=== PATIENT | male | born 1945 | race Caucasian/White ===

== ENCOUNTER 2018-11-22 17:03 | Inpatient (IN) ==
[2018-11-22] MEDS ORDERED: ZOFRAN IV ONE ×2 (17:30→18:25)
[2018-11-22 18:07] LABS: INR 0.89; PROTIME 12.5 Seconds (11.0-16.0); PTT 28.1 Seconds (22.3-41.8)
[2018-11-22 18:17] LABS: AGAP 12; ALBUMIN 4.6 g/dL (3.5-5.0); ALKALINE PHOSPHATASE 72 U/L (32-122); BUN 17 mg/dL (8-22); CALCIUM 9.4 mg/dL (8.8-10.2); CHLORIDE 96 mmol/L (98-107); CK PROFILE 98 U/L (24-204); COSMO 282; CREATININE 0.9 mg/dL (0.7-1.2); ESTIMATED GFR > 60; GLUCOSE 110 mg/dL (70-104); GOT 420 U/L (10-34); GPT 177 U/L (10-44); POTASSIUM 3.8 mmol/L (3.5-5.1); SODIUM 140 mmol/L (136-145); TCO2 32 mmol/L (25-35); TOTAL PROTEIN 7.1 g/dL (6.3-8.3)
[2018-11-22 18:18] LABS: BASO# 0.04 X1000 (0.0-0.2); BASO% 0.5 % (0.0-0.8); EOS# 0.08 X1000 (0.0-0.7); EOS% 0.9 % (0.0-10.0); HEMOGLOBIN 14.8 g/dL (14.0-18.0); IMM GRAN# 0.01 X1000 (0.0-0.04); IMM GRAN% 0.1 % (0.0-0.5); LYMPH# 0.91 X1000 (1.2-3.4); LYMPH% 10.5 % (20.5-51.1); MCHC 35.2 g/dL (33-37); MCV 93.8 FL (81-99); MONO# 0.12 X1000 (0.11-0.59); MONO% 1.4 % (1.7-9.3); MPV 9.2 FL (7.4-10.4); NEUT# 7.49 X1000 (1.4-6.5); NEUT% 86.6 % (42.2-75.2); PLT 195 X1000 (130-400); RBC 4.48 XMIL (4.7-6.1); RDW 13.1 % (11.5-14.5); WBC 8.65 X1000 (4.8-10.8)
[2018-11-22 18:19] LABS: LIPASE > 3000 U/L (13-60)
--- NOTE | 2018-11-22 18:19 | Diag Imaging Result Doc PS360 ---
EXAM: CHEST-2 VIEWS HISTORY: SOB TECHNIQUE: Chest two views COMPARISON: None. FINDINGS: The lungs are well expanded. The heart is not enlarged. The vessels are not distended. There are no infiltrates. No pleural effusions. IMPRESSION: No acute abnormality. Electronically signed by Mario Gilbert 11/22/2018 6:16 PM
[2018-11-22] MEDS ORDERED: ZOSYN 3.375 GM in NS 50 ML IV ONE (18:21)
--- NOTE | 2018-11-22 18:23 | PROVIDER DOCUMENTATION ---
This chart was entered by Dev Yo Scribe, acting as scribe for Maribell Longoria CRNP. HPI-Abdominal Pain/GI Problem - General Chief Complaint: Abdominal Pain Stated Complaint: SOB/SHAKING Time Seen by Provider: 11/22/18 17:16 Source: patient Allergies/Adverse Reactions: Patient Allergies Allergy/AdvReac Type Severity Reaction Status Date / Time No Known Allergies Allergy Verified 08/06/18 21:39 - History of Present Illness-ABD Nature of Presenting Problems: Pt is a 73 y/o M presents to the ED with abdominal pain with vomiting that began today. He report not feeling well for a couple of days. Pt point across his upper abdomen when stating where he hurts. He says he has been keeping some fluid down. Abdominal Pain Onset Location: reports: RUQ, LUQ, epigastric Pain Radiation: reports: no radiation Quality of Pain: reports: aching Severity in ED: reports: moderate Onset/Duration: reports: this afternoon Timing: reports: still present Activities at Onset: reports: none Exposure to sick contacts?: No Associated Symptoms: reports: nausea, vomiting. denies: back/neck pain, fever/chills Review of Systems - Adult - REVIEW OF SYSTEMS - ADULT Constitutional: denies: chills, fever Eyes: reports: no symptoms reported Ears, Nose, Mouth & Throat: reports: no symptoms reported Cardiovascular: denies: chest pain, edema Respiratory: denies: cough, shortness of breath, wheezing Gastrointestinal: reports: see HPI, abdominal pain, nausea, vomiting. denies: diarrhea Genitourinary: denies: dysuria, discharge Musculoskeletal: reports: no symptoms reported Integumentary: reports: no symptoms reported Neurological: reports: ataxia. denies: dizziness/vertigo, headache/migraines Psychiatric: reports: no symptoms reported Endocrine: reports: no symptoms reported All Other Systems: Reviewed and Negative Past History - Adult - PAST MEDICAL HISTORY-ADULT Review of Records: reports: Old Records Reviewed, Nursing Assessment Review, Medications Reviewed Cardiovascular: reports: HTN, hyperlipidemia. denies: murmur Respiratory: denies: asthma, COPD Gastrointestinal: reports: GERD Musculoskeletal: reports: intervertebral disc disease Neurological: denies: CVA, headaches/migraines, Seizures/Epilepsy Psychiatric: reports: depression. denies: suicide attempt - PRIOR SURGERIES/PROCEDURES Surgical/Procedure History: reports: tonsillectomy, other (prostatectomy) - SOCIAL HISTORY Smoking: non-smoker Substance Use: none/never Living Situation: family Physical Exam-General - PHYSICAL EXAM-ADULT Initial Vital Signs Reviewed: Yes - CONSTITUTIONAL General Appearance: appears well, alert, no apparent distress - EYES Eyes: PERRL/EOMI, pink conjunctivae - HEAD, EARS, NOSE, MOUTH & THROAT HENMT: moist mucous membranes, normal ENT inspection - NECK Neck: non-tender, full range of motion, supple, normal inspection - RESPIRATORY Respiratory: lungs clear, normal breath sounds, no pleuratic chest pain, no respiratory distress, no accessory muscle use - CARDIOVASCULAR Cardiovascular: regular rate, rhythm, no gallop, no murmur - GASTROINTESTINAL (ABDOMEN) Abdominal Exam: normal bowel sounds, soft, tenderness (TTP bilateral upper quadrants). negative: distended, guarding, rigid, rebound - MUSCULOSKELETAL Back Exam: normal inspection, no CVA tenderness, no vertebral tenderness Extremity: normal range of motion, non-tender, normal gait, normal inspection, no pedal edema - SKIN Integumentary: normal color, warm/dry - NEUROLOGIC Neurologic: grossly normal, no motor/sensory deficits - PSYCHIATRIC Psych/Mental Status: normal mood/affect, normal thought content, normal thought process, oriented x 3 Progress - PLAN OF CARE/RESULTS Progress/Plan/Lab Results: Vital Signs - 8 hr 11/22/18 17:05 Temperature 97.6 F Pulse Rate 60 Respiratory Rate 20 Blood Pressure 117/060 O2 Sat by Pulse Oximetry 96 Orders Category Date Time Status Saline Loc NOW Care 11/22/18 17:16 Active CHEST-2 VIEWS [RAD] Stat Exams 11/22/18 17:17 Ordered CBC WITH ELECTRONIC DIFF [HEME] Stat Lab 11/22/18 17:16 Uncollected CK PROFILE [SP CHEM] Stat Lab 11/22/18 17:17 Uncollected COMPREHENSIVE METABOLIC PANEL [CHEM] Stat Lab 11/22/18 17:16 Uncollected LIPASE [CHEM] Stat Lab 11/22/18 17:16 Uncollected PROTIME WITH INR [COAG] Stat Lab 11/22/18 17:16 Uncollected PTT [COAG] Stat Lab 11/22/18 17:16 Uncollected TROPONIN T Stat Lab 11/22/18 17:16 Uncollected EKG [EKG] Stat Ther 11/22/18 17:16 Ordered Result Diagrams: 11/22/18 17:24 11/22/18 17:24 - EKG 1 Time of EKG reading by physician:: 19:23 EKG Read and Signed by:: Vandana Gillis EKG Interpretation (*Must complete 3 of following elements*): Abnormal Rate: 97 Rhythm: NSR Runge: normal QRS: RBB TX Interval: normal ST Wave: non-specific ST changes - XRAY 1 XRAY: Bilateral XRAY Study: Chest Impression: See EMR Report ([facility] [address], [address], [place] [address] Department of Imaging Patient: ESPINOZA DELEON Date: 11/22/18#: [id number] : 1945DM Status: [facility] ERAcct#: [id number] Age/Sex: 73/MRoom/Bed: Loc: P.ED Ordering Physician: Maribell Longoria Family Physician: Dominick Vanegas MD Reason for Procedure: SOB Signed EXAM: CHEST-2 VIEWS HISTORY: SOB TECHNIQUE: Chest two views COMPARISON: None. FINDINGS: The lungs are well expanded. The heart is not enlarged. The vessels are not distended. There are no infiltrates. No pleural effusions. IMPRESSION: No acute abnormality. Electronically signed by Mario Gilbert 11/22/2018 6:16 PM 11/22/181815 Inte rpreting Physician: Mario Gilbert MD Dictated Date/Time: 11/22/181815 cc: Maribell Longoria; Dominick Vanegas MD) - CT/MRI 1 CT Study: Abdomen, Pelvis Impression: See EMR Report ([facility] [address], [address], [place] [address] Department of Imaging Patient: ESPINOZA DELEON Date: 11/22/18#: [id number] : 1945DM Status: [facility] [id number] Age/Sex: 73/MRoom/Bed: Loc: P.ED Ordering Physician: Maribell Longoria Family Physician: Dominick Vanegas MD Reason for Procedure: abd pain Signed EXAM: CT ABD/PELVIS W/IV CONT ONLY HISTORY: abd pain TECHNIQUE: Emergency CT of the abdomen and pelvis with intravenous contrast COMPARISON: None. FINDINGS: No calcified gallstones. There is fatty infiltration of the liver. There is inflammation about the pancreas. No pancreatic calcifications. No pseudocyst. Normal spleen, adrenal glands, and kidneys. No hydronephrosis. No aortic aneurysm. Moderate atherosclerosis. There are many scattered colonic diverticula. No bowel obstruction. Normal appendix. The urinary bladder is moderately distended and is normal. The prostate has been removed. IMPRESSION: 1.Acute pancreatitis 2.Fatty infiltration of the liver 3.Colonic diverticulosis 4.Prostatectomy This exam was performed using automated exposure control, adjustment of mA or kV according to patient size, and/or use of iterative reconstruction technique. Electronically signed by Mario Gilbert 11/22/2018 7:28 PM 11/22/181927 Interpreting Physician: Mario Gilbert MD Dictated Date/Time: 11/22/181923 cc: Maribell Longoria; Dominick Vanegas MD) - CONSULTS/PCP/HOSPITALIST Notification #1 *Consult/PCP/Hospitalist*: MD Coty Time Discussed: 20:05 Reason/Comments: Acute pancreatitis with elevated LFTs Consult Disposition: Admit Departure - Departure Date of Disposition Decision: 11/22/18 Time of Disposition Decision: 20:05 DIAGNOSIS: Elevated LFTs Acute pancreatitis Qualifiers: Pancreatitis type: unspecified pancreatitis type Acute pancreatitis complication: unspecified Qualified Code(s): K85.90 - Acute pancreatitis without necrosis or infection, unspecified Nausea & vomiting Qualifiers: Vomiting type: unspecified Vomiting Intractability: intractable Qualified Code(s): R11.2 - Nausea with vomiting, unspecified Disposition: ADMITTED INPATIENT 09 Certified Medical Emergency: Emergent Condition: Stable Referrals and Follow-Ups: Dominick Vanegas MD [Primary Care Provider] - - Critical Care Note This patient required my direct & personal management of CC.: No Attestation - Physician/ DARCY Attestation Patient care was provided by Advanced Practice Provider:: Yes Advanced Practice Provider:: Maribell Longoria Advanced Practice Provider documentation review:: The Mid-level provider documentation, treatment plan and medical decision making was reviewed by the physician who agrees with all treatment and medical decision making by the MLP. The physician spent face to face time with patient:: Yes Advanced Practice Provider documentation review:: Supervising physician onsite and consulted in the evaluation and care of this patient. The physician did have a face to face encounter with the patient. This chart was documented by the indicated scribe, (Dev Yo Scribe) and accurately reflects the services I performed and decisions made by me, Maribell Longoria CRNP, as attested by the provider's signature.
[2018-11-22] MEDS ORDERED: DILAUDID IV ONE (18:25)
[2018-11-22] MEDS ORDERED: NS 1,000 ML IV ONE (18:26)
--- NOTE | 2018-11-22 19:30 | Diag Imaging Result Doc PS360 ---
EXAM: CT ABD/PELVIS W/IV CONT ONLY HISTORY: abd pain TECHNIQUE: Emergency CT of the abdomen and pelvis with intravenous contrast COMPARISON: None. FINDINGS: No calcified gallstones. There is fatty infiltration of the liver. There is inflammation about the pancreas. No pancreatic calcifications. No pseudocyst. Normal spleen, adrenal glands, and kidneys. No hydronephrosis. No aortic aneurysm. Moderate atherosclerosis. There are many scattered colonic diverticula. No bowel obstruction. Normal appendix. The urinary bladder is moderately distended and is normal. The prostate has been removed. IMPRESSION: 1.Acute pancreatitis 2.Fatty infiltration of the liver 3.Colonic diverticulosis 4.Prostatectomy This exam was performed using automated exposure control, adjustment of mA or kV according to patient size, and/or use of iterative reconstruction technique. Electronically signed by Mario Gilbert 11/22/2018 7:28 PM
--- NOTE | 2018-11-22 19:36 | EKG Report ---
Test Performed on : 11/22/2018 7:20:14 PM Test Reason : SOB Blood Pressure : / mmHG Vent. Rate : 097 BPM Atrial Rate : 097 BPM P-R Int : 148 ms QRS Dur : 140 ms QT Int : 386 ms P-R-T Axes : 030 010 000 degrees QTc Int : 490 ms Normal sinus rhythm. Right bundle branch block T wave abnormality, consider inferior ischemia Abnormal ECG No previous ECGs available Unconfirmed Result
[2018-11-22] MEDS ORDERED: LR 1,000 ML IV ONE (20:08)
[2018-11-22] MEDS ORDERED: DILAUDID IV PRN (21:20)
[2018-11-22] MEDS ORDERED: ZOFRAN IV PRN (21:20)
[2018-11-22] MEDS ORDERED: LR 1,000 ML ONE (21:31)
[2018-11-22] MEDS: LR 1,000 ML IV SCH (21:32)
[2018-11-23] MEDS: LR 1,000 ML IV SCH ×3 (05:23→21:08)
[2018-11-23 07:26] LABS: BASO# 0.02 X1000 (0.0-0.2); BASO% 0.1 % (0.0-0.8); EOS# 0.02 X1000 (0.0-0.7); EOS% 0.1 % (0.0-10.0); HEMATOCRIT 37.3 % (42.0-52.0); HEMOGLOBIN 12.7 g/dL (14.0-18.0); IMM GRAN# 0.05 X1000 (0.0-0.04); IMM GRAN% 0.3 % (0.0-0.5); LYMPH# 0.38 X1000 (1.2-3.4); MCH 32.3 PG (27-31); MCV 94.9 FL (81-99); MONO# 1.02 X1000 (0.11-0.59); MONO% 5.5 % (1.7-9.3); MPV 9.3 FL (7.4-10.4); PLT 164 X1000 (130-400); RBC 3.93 XMIL (4.7-6.1); RDW 13.3 % (11.5-14.5); WBC 18.69 X1000 (4.8-10.8)
[2018-11-23 07:43] LABS: AGAP 10; ALBUMIN 3.7 g/dL (3.5-5.0); ALKALINE PHOSPHATASE 56 U/L (32-122); AMYLASE 1135 U/L (20-200); BUN 14 mg/dL (8-22); CALCIUM 8.9 mg/dL (8.8-10.2); CHLORIDE 99 mmol/L (98-107); COSMO 279; CREATININE 0.9 mg/dL (0.7-1.2); ESTIMATED GFR > 60; GLUCOSE 89 mg/dL (70-104); GOT 234 U/L (10-34); GPT 205 U/L (10-44); POTASSIUM 4.2 mmol/L (3.5-5.1); SODIUM 140 mmol/L (136-145); TCO2 31 mmol/L (25-35)
[2018-11-23 07:47] LABS: LIPASE 1479 U/L (13-60)
[2018-11-23] MEDS ORDERED: ZOFRAN IV PRN (08:33)
[2018-11-23] MEDS: ZOSYN 3.375 GM in NS 50 ML IV SCH ×3 (10:15→21:08)
--- NOTE | 2018-11-23 12:41 | HISTORY AND PHYSICAL ---
CHIEF COMPLAINT: Abdominal pain. HISTORY OF PRESENT ILLNESS: This is a 73-year-old gentleman who presented to the emergency room complaining of a sudden onset of bilateral upper quadrant and epigastric pain. He described this as an aching stabbing type pain that had been present off and on for the past few weeks. He stated he noticed he would be sitting up in a chair in all the sudden get a grabbing type pain. He would have to get up and walk and it would soon subside. He does on retrospect thing that this followed food intake. He states for the last few days, he has just been feeling bad. He could not put his finger on quite what was going on. He denied any fevers or chills. Prior to coming to the emergency room, he had a sudden onset of abdominal pain, with vomiting. When it did not subside, he presented to the emergency room. He did rate his pain a 10/10 him on arrival to the emergency room with anything that he did exacerbated and nothing relieved. He was diagnosed with sun poisoning and given a steroid shot as well as steroid cream to rub on bilateral arms and his head. This was approximately 11/18/2018. PAST MEDICAL HISTORY: 1. Prostate cancer status post prostatectomy. 2. Hyperlipidemia. PAST SURGICAL HISTORY: Prostate removal. SOCIAL HISTORY: He denies alcohol, tobacco, or illicit drug use. He did drink in the past, but that has been many years. ALLERGIES: No known drug allergies. HOME MEDICATIONS: A list will be obtained by the nursing staff. Once verified, will review and restart as appropriate. REVIEW OF SYSTEMS: Discussed with the patient with pertinent positives stated in the HPI. He denied any syncope, dizziness, chest pain, palpitations, any diarrhea, constipation, black or bloody vomitus or stools, any hematuria, dysuria, frequency, urgency, any shortness of breath, cough, fever, chills, any PND, orthopnea. PHYSICAL EXAMINATION: VITAL SIGNS: Blood pressure is 101/56 with a heart rate of 71, respirations are 18, temperature 99.2 degrees oral with O2 saturations being 99 to 100 percent on room air. GENERAL: This is a 73-year-old gentleman who is lying flat in the bed in no distress. EYES: Pupils are equal, round, react to light. EOMs are intact. Sclerae are anicteric. HEENT: Head is normocephalic, atraumatic. Mucous membranes are dry. NECK: Supple with trachea midline. CARDIOVASCULAR: Regular rate and rhythm. S1 and S2 appreciated. No murmur. Calves are nontender to palpation bilateral with peripheral pulses palpable x4 extremities. PULMONARY: Breath sounds are clear with no increased work of breathing noted. Chest rises and falls symmetric with respiration. Chest wall is nontender to palpation. GASTROINTESTINAL: Abdomen is soft. He has diffuse tenderness, particularly in the upper quadrants. He is nondistended with bowel sounds in all 4 quadrants. GENITOURINARY: He has no CVA or suprapubic tenderness. SKIN: Warm and dry with no rashes or lesions noted. NEUROLOGIC: He is alert oriented x3. LABORATORY DATA: On arrival to the ER, WBC was 8.65 with hemoglobin 14.8, hematocrit 42, and platelets of 195,000. Sodium 140, potassium 3.8, BUN 17, creatinine 9 with a glucose of 110, total bilirubin is 1.20 with AST of 420, ALT of 177, alkaline phosphatase of 72. Amylase is 2659 with lipase greater than 3000 and a lactate of 2.3. Repeat labs on the , WBC is 18.69 with hemoglobin 12.7, hematocrit 37.3, and platelets of 164,000. Sodium 140, potassium 4.2, BUN 14, creatinine 0.9 with a glucose of 89, total bilirubin is 2.7 with AST of 234, ALT 205, alkaline phosphatase of 56. Amylase is 1135 with lipase 1479. Blood cultures preliminary revealed gram- negative rods to both right antecubital and left hand sites. Chest x-ray revealed no acute abnormality. CT of the abdomen and pelvis with IV contrast revealed acute pancreatitis, fatty infiltration of the liver, colonic diverticulosis and prostatectomy. ASSESSMENT AND PLAN: 1. Acute pancreatitis. IV hydration, pain and nausea medication. remain NPO. trend his amylase, lipase and liver function tests. 2. Nausea and vomiting secondary to #1, IV hydration and Zofran for antiemetics. 3. Leukocytosis. White count did increase to 18, blood cultures revealed gram- negative rods. 4. Gram-negative kerry bacteremia. Zosyn and await sensitivities. 5. Elevated liver function tests. Treatment as above. Will obtain an ultrasound of the abdomen. 6. For deep venous thrombosis prophylaxis, sequential compression devices. 7. For gastrointestinal prophylaxis, Protonix. The patient will remain NPO except for medication. Further treatments pending hospital course and discussion with Dr. Vanegas. Dictated by DIAN Daily for Dominick Vanegas MD cc: DIAN Daily MD [facility]
--- NOTE | 2018-11-23 14:51 | HISTORY AND PHYSICAL ---
ADDENDUM: Patient seen and examined by myself. Full note dictated and discussed with nurse practitioner. Patient presented to the hospital with a 1- to 2-day history of epigastric abdominal pain, nausea, and vomiting. Denies any fevers or chills. Denies any GI or issues otherwise. States he is having intense epigastric pain. He was given Dilaudid in the ER as well IV fluids and kept n.p.o. Notes that his symptoms are improving this morning, but he is still having pain. White count is actually elevated to 18.6. It was initially 8. AST, ALT, amylase, and lipase all are trending downward. Bilirubin is actually elevated from admission. This may be more mobilization than actually worsening since his LFTs are improving. We will admit him to the hospital. IV fluids. Keep him n.p.o. and treat him for pancreatitis. Does have gram-negative rods growing in the blood. We will place him on Zosyn and will follow. Please see full note. cc: Dominick Vanegas MD
--- NOTE | 2018-11-23 15:09 | Diag Imaging Result Doc PS360 ---
EXAM: US ABDOMEN-COMPLETE HISTORY: Acute pancreatitis TECHNIQUE: Abdominal ultrasound COMPARISON: CT from 11/22/2018 FINDINGS: The pancreas is obscured. There is fatty infiltration of the liver. Normal right kidney. No hydronephrosis. The gallbladder is contracted. There is a 5 mm stone near the neck of the gallbladder. The common bile duct measures 5 mm. Spleen is not enlarged. Normal left kidney. No hydronephrosis. No ascites. The aorta and inferior vena cava are poorly seen. IMPRESSION: 1.Cholelithiasis 2.Fatty infiltration of the liver Electronically signed by Mario Gilbert 11/23/2018 3:07 PM
[2018-11-23] MEDS ORDERED: NS 0 ML ONE (16:18)
[2018-11-23] MEDS: TYLENOL PO PRN (21:08)
[2018-11-24] MEDS: LR 1,000 ML IV SCH ×5 (02:00→18:02)
[2018-11-24] MEDS: ZOSYN 3.375 GM in NS 50 ML IV SCH ×4 (02:00→20:17)
[2018-11-24] MEDS: PROTONIX PO SCH (06:09)
[2018-11-24 06:56] LABS: BASO# 0.02 X1000 (0.0-0.2); BASO% 0.2 % (0.0-0.8); EOS# 0.12 X1000 (0.0-0.7); EOS% 1.1 % (0.0-10.0); HEMATOCRIT 38.5 % (42.0-52.0); HEMOGLOBIN 12.8 g/dL (14.0-18.0); IMM GRAN# 0.02 X1000 (0.0-0.04); IMM GRAN% 0.2 % (0.0-0.5); LYMPH# 0.81 X1000 (1.2-3.4); LYMPH% 7.2 % (20.5-51.1); MCH 31.9 PG (27-31); MCHC 33.2 g/dL (33-37); MONO% 5.3 % (1.7-9.3); MPV 9.2 FL (7.4-10.4); NEUT# 9.69 X1000 (1.4-6.5); PLT 129 X1000 (130-400); RBC 4.01 XMIL (4.7-6.1); RDW 13.4 % (11.5-14.5); WBC 11.26 X1000 (4.8-10.8)
[2018-11-24 07:19] LABS: AGAP 10; ALBUMIN 3.6 g/dL (3.5-5.0); ALKALINE PHOSPHATASE 62 U/L (32-122); AMYLASE 384 U/L (20-200); BUN 13 mg/dL (8-22); CALCIUM 8.7 mg/dL (8.8-10.2); CHLORIDE 100 mmol/L (98-107); COSMO 277; CREATININE 0.8 mg/dL (0.7-1.2); ESTIMATED GFR > 60; GLUCOSE 87 mg/dL (70-104); GOT 108 U/L (10-34); GPT 141 U/L (10-44); LIPASE 522 U/L (13-60); POTASSIUM 3.6 mmol/L (3.5-5.1); SODIUM 139 mmol/L (136-145); TCO2 29 mmol/L (25-35); TOTAL PROTEIN 6.1 g/dL (6.3-8.3)
[2018-11-24 07:59] LABS: BANDS 1 % (0-1); LYMPHS 8 % (21-51); MONO 1 % (1-9); SEGS 90 % (42-75)
--- NOTE | 2018-11-24 09:44 | GENERAL SURGERY CONSULTATION ---
DATE: 11/24/2018 REQUESTING PHYSICIAN: Dr. Vanegas. REASON FOR CONSULTATION: Consult is concerning likely biliary pancreatitis. HISTORY OF PRESENT ILLNESS: A 73-year-old gentleman who presented to the emergency department with sudden onset bilateral upper quadrant pain and epigastric pain. He described it as stabbing in nature. It had been going on for several days but it worsened. He was seen in emergency department. Had a CT scan and laboratory that seemed to suggest pancreatitis. Likely, the etiology at this point, given an ultrasound showing cholelithiasis, it is biliary pancreatitis. He is currently feeling better. He has been admitted and started on appropriate therapy. I was asked to weigh an opinion. PAST MEDICAL HISTORY: 1. Prostate cancer, status post prostatectomy. 2. Hyperlipidemia. PAST SURGICAL HISTORY: Includes prostatectomy. SOCIAL HISTORY: Denies alcohol, tobacco, or illicit drugs. ALLERGIES: None. HOME MEDICATIONS: Reviewed. FAMILY HISTORY: Reviewed with patient and noncontributory. REVIEW OF SYSTEMS: A full 10 point review of systems was obtained and negative except as specified in the HPI. PHYSICAL EXAMINATION: Vital Signs: The patient is currently afebrile. His vital signs are stable. General Examination: No acute distress. Alert, interactive, male. Looks stated age. HEENT: Normocephalic, atraumatic. Pupils equal, round, reactive to light. Mucous membranes moist. Oropharynx benign. Neck: Supple. Trachea midline. Cardiovascular: Regular rate and rhythm. Lungs: Grossly clear. Abdomen: Soft. Some minimal epigastric tenderness but no peritoneal signs. Extremities: Moves all extremities. Neurologic: Grossly intact. Skin: No signs of jaundice. Vascular: All extremities perfused. LABORATORY: White blood cell count is 11, hematocrit 38.5, platelet count 129,000. Bilirubin 1.7, AST 108, ALT 141, alkaline phosphatase 62, amylase 348, lipase 522. Imaging reviewed and noted above. ASSESSMENT AND PLAN: A 73-year-old with likely biliary pancreatitis. Biliary pancreatitis. At this time, we will plan on letting the pancreatitis improve. We will plan on surgical intervention likely once the pancreatitis resolves. Otherwise, continue current treatment. cc: Carlos Mcdonald MD
--- NOTE | 2018-11-24 19:25 | PROGRESS NOTE ---
DATE: 11/24/2018 SUBJECTIVE: Patient states he is feeling much better. His nausea is improved. His abdominal pain is improved. Denies any fevers or chills. PHYSICAL: Vital Signs: Temperature 98.5, pulse 64, respiratory 18, BP 115/58. General: Patient is in no current respiratory distress. Very pleasant to talk with. HEENT: Normocephalic. Neck: Supple. Cardiovascular: Regular rate. Chest: Clear. Abdomen: Soft. Extremities: Moves all extremities. Neurologic: No changes. ASSESSMENT: 1. Nausea and vomiting. 2. Pancreatitis, improving. 3. AST, ALT both have improved. 4. Gallstones. 5. Gram-negative kerry bacteremia. PLAN: We will continue patient in the hospital. Continue antibiotics until we get full culture and sensitivities. We have consulted surgery, although patient cannot go to surgery currently. For one, his pancreatitis needs to improve and his blood cultures also needs to improve. cc: Dominick Vanegas MD
[2018-11-25] MEDS: ZOSYN 3.375 GM in NS 50 ML IV SCH ×4 (02:13→21:00)
[2018-11-25] MEDS: LR 1,000 ML IV SCH ×4 (02:13→21:02)
--- NOTE | 2018-11-25 05:42 | GENERAL SURGERY PROGRESS NOTE ---
DATE: 11/25/2018 SUBJECTIVE: The patient seems to be doing okay. No major issues. He is hurting less. OBJECTIVE: Vital Signs: The patient is currently afebrile. His vital signs are stable. General: No acute distress. HEENT: Normocephalic, atraumatic. Pupils equal, round, and reactive to light. Mucous membranes moist. Oropharynx benign. Neck: Supple. Trachea midline. Cardiovascular: Regular rate and rhythm. Lungs: Grossly clear. Abdomen: Soft, essentially nontender, nondistended. Extremities: Moves all extremities. Neurologic: Grossly intact. Skin: No signs of jaundice. Vascular: All extremities perfused. DIAGNOSTIC DATA: Laboratory reviewed from yesterday. Microbiology shows gram-negative rods in blood cultures. ASSESSMENT AND PLAN: A 73-year-old with pancreatitis, presumed biliary, and bacteremia. 1. Bacteremia. At this time this could be related to his pancreatitis. He is on Zosyn. He is clinically doing okay but may need to hold off on surgery given his bacteremia. He does not have any obvious signs of cholecystitis at this time so it would be hard to suggest that the gallbladder was the source of his bacteremia, he could have gotten bacteremic from the pancreatitis, which would just suggest that he has a pretty significant pancreatitis, which may mean we want to hold off on doing any kind of cholecystectomy. 2. Possible biliary pancreatitis. At this time, please see above, but given his bacteremia and the lack of signs of cholecystitis, we will hold off right now on cholecystectomy. We will keep him on his IV antibiotics. I will actually advance him to a low-fat diet and we will see how he does. I will discuss with Dr. Vanegas. cc: Carlos Mcdonald MD
[2018-11-25 06:03] LABS: HEMATOCRIT 37.9 % (42.0-52.0); HEMOGLOBIN 12.9 g/dL (14.0-18.0); MCH 31.6 PG (27-31); MCV 92.9 FL (81-99); MPV 9.3 FL (7.4-10.4); RBC 4.08 XMIL (4.7-6.1); RDW 12.7 % (11.5-14.5); WBC 8.41 X1000 (4.8-10.8)
[2018-11-25 06:05] LABS: AGAP 12; ALBUMIN 3.6 g/dL (3.5-5.0); ALKALINE PHOSPHATASE 75 U/L (32-122); AMYLASE 191 U/L (20-200); BUN 9 mg/dL (8-22); CALCIUM 8.9 mg/dL (8.8-10.2); CHLORIDE 100 mmol/L (98-107); COSMO 276; CREATININE 0.7 mg/dL (0.7-1.2); ESTIMATED GFR > 60; GLUCOSE 91 mg/dL (70-104); GOT 59 U/L (10-34); GPT 100 U/L (10-44); MAGNESIUM 1.8 mg/dL (1.5-2.7); POTASSIUM 3.4 mmol/L (3.5-5.1); SODIUM 139 mmol/L (136-145); TCO2 27 mmol/L (25-35); TOTAL PROTEIN 6.4 g/dL (6.3-8.3)
[2018-11-25] MEDS: PROTONIX PO SCH (06:12)
--- NOTE | 2018-11-25 19:41 | PROGRESS NOTE ---
DATE: 11/25/2018 SUBJECTIVE: Patient states he is feeling tremendously better. He is having no cough or congestion. No chest pain. Denies any abdominal pain. Denies nausea. Notes that he is drinking well without any issues. PHYSICAL EXAMINATION: Vital Signs: Reviewed. Temperature 98 degrees, pulse 50s, respiratory 18, and BP 142/60. General: Patient is in no current distress. He is sitting up. HEENT: Normocephalic. Neck: Supple. Cardiovascular: Regular rate. Chest: Clear. Abdomen: Soft. Extremities: Moves all extremities. Neurologic: No changes. Skin: Warm and dry. No rashes. ASSESSMENT: 1. E. Coli bacteremia, likely secondary to his pancreatitis. Thankfully, sensitive to Levaquin. We will continue Zosyn tonight and switch to Levaquin tomorrow, and hopefully discharge home. 2. Gallstones which likely caused his pancreatitis, although he does not appear to have acute cholecystitis. I agree with Surgery that we will continue to watch, and wait until his cultures are negative. These have been repeated prior to having surgery. Expect he will be discharged home, and will follow up outpatient with Surgery when he is more suitable for surgical intervention. 3. Leukocytosis resolved. White count is at 8. 4. Hyperbilirubinemia improving. PLAN: We will continue patient in hospital. Continue antibiotics. We will advance his diet. Hopefully, home tomorrow. cc: Dominick Vanegas MD
[2018-11-25] MEDS: TYLENOL PO PRN (21:32)
[2018-11-26] MEDS: ZOSYN 3.375 GM in NS 50 ML IV SCH (02:36)
[2018-11-26] MEDS: PROTONIX PO SCH (06:09)
[2018-11-26 07:52] VITALS: BP 137/69
[2018-11-26] MEDS ORDERED: LEVAQUIN PO SCH (09:00)
--- NOTE | 2018-11-26 09:37 | GENERAL SURGERY PROGRESS NOTE ---
DATE: 11/26/2018 SUBJECTIVE: Patient doing well. No major abdominal pain. No complaints. OBJECTIVE: Vital Signs: Patient is currently afebrile. His vital signs are stable. General: No acute distress. HEENT: Normocephalic, atraumatic. Pupils equal, round, reactive to light. Mucous membranes moist. Oropharynx benign. Neck: Supple. Trachea midline. Cardiovascular: Regular rate and rhythm. Lungs: Grossly clear. Abdomen: Soft, nontender, nondistended. Extremities: Moves all extremities. Neurologic: Grossly intact. Skin: No signs of jaundice. Vascular: All extremities perfused. LABORATORY: None this morning as of yet. Reviewed labs from yesterday, white blood cell count was 8. Microbiology shows E. coli in his blood, which looks relatively pansensitive. ASSESSMENT AND PLAN: A 73-year-old with bacteremia and pancreatitis, likely biliary. 1. Bacteremia. At this time patient does have a relatively pansensitive E. coli in his blood. We will plan on treating that before any kind of surgical intervention. 2. Biliary pancreatitis. At this time, clinically, he is improving. I would like to see him as an outpatient to discuss elective cholecystectomy. cc: Carlos Mcdonald MD
--- NOTE | 2018-11-27 02:58 | DISCHARGE SUMMARY ---
ADMISSION DATE: 11/22/2018 DISCHARGE DATE: 11/26/2018 DISCHARGE DIAGNOSES: 1. Acute pancreatitis likely secondary to gallstones. 2. Gallstones without cholecystitis. 3. Nausea, vomiting, resolved. 4. Abdominal pain, resolved. 5. Hyperbilirubinemia, improved. 6. Leukocytosis, resolved. CONSULTATIONS: Dr. Mcdonald, general surgery. PROCEDURES: CT and ultrasound of abdomen demonstrating gallstones but no cholecystitis. BRIEF HOSPITAL COURSE: The patient is a 73-year-old male who does not drink alcohol. He presented to the hospital with increased abdominal pain, nausea, vomiting. Subsequently diagnosed with pancreatitis with amylase and lipase both over 1000. He was kept NPO, placed on antibiotics prophylactically. Ultimately, his blood cultures did start growing gram negative rods that resulted in E coli sensitive to Levaquin. On discharge, he is awake, alert. He is in no distress. He is eating without any difficulty and his pain is all but resolved. DISPOSITION: Patient will be discharged home. He will continue Levaquin as an outpatient for a total of 14 days and then will follow up with Dr. Mcdonald regarding his gallbladder and the possibility of a cholecystectomy. Discussed with patient during the next several days he needs to continue a soft diet, low fat, and advance as tolerated. DISCHARGE MEDICATIONS: Levaquin 500 mg once a day for 2 days. Otherwise, no changes on his chronic home medications. TIME: Greater 30 minutes was spent in total care. cc: Dominick Vanegas MD
== END 2018-11-26 10:39 | disposition home or self-care (01) | DRG 439 ==
LOC: P.ED 17:03 → SUATTDRO 21:08 → P.MEDSURG 21:08
PROVIDERS: ATTEND Family Medicine
CPT/HCPCS: 71020; 71046; 74177; 76700; 80053; 82150; 82550; 83605; 83690; 83735; 84484; 85025; 85027; 85610; 85730; 87040; 87077; 87186; 93005; 94761; 96361; 96365; 96375; 96376; 99285; A9270; J1170; J2405; J2543; J7030; J7120; Q9967